=== PATIENT | female | born 1985 | race Caucasian/White ===

== ENCOUNTER 2020-12-21 06:13 | Emergency (ER) | payer MEDICAID, SELFPAY ==
[2020-12-21 06:16] VITALS: BP 141/70; PULSE 74; RESP 16; TEMP 36.8; O2SAT 98; BMI 31.8
--- NOTE | 2020-12-21 06:31 | EDS_ITS ---
HPI History of Present Illness Chief Complaint: Dental Informant: patient Onset/Context/Timing Onset: Yesterday Current Severity: Severe Maximum Severity: Severe Narrative Narrative: Patient present secondary to dental pain and lower jaw swelling. She states has had intermittent problems with her left mandibular central incisor for some time. She is been to her dentist multiple times but no problem has been found. She started having increasing pain yesterday with a small amount of swelling. She woke this morning with swelling across her mandible. She is not currently in antibiotics. She tried ibuprofen and ice at [place] She is planning on driving back up there when she leaves the emergency room today to be seen by her dentist. [facility] Medical History Cervical cancer Home Medications hydrocodone-acetaminophen 1 tab PO Q6H PRN 3 Days #10 tab 12/21/20 [Rx Last Taken Unknown] penicillin V potassium 500 mg PO 4X/DAY #40 tab 12/21/20 [Rx Last Taken Unknown] Allergy/AdvReac Type Severity Reaction Status Date / Time mustard Allergy Hives Verified 12/21/20 06:19 Surgical History History of hysterectomy Social History Smoking Status: Current every day smoker tobacco type: cigarettes ROS ROS ED Constitutional Constitutional ED: Denies chills or fever(s) Eyes Eyes: Denies change in vision ENT ENT ED: Reports other Details: Dental pain ; Denies sore throat Cardiovascular Cardiovascular: Denies chest pain Respiratory/Chest Respiratory/Chest: Denies cough or dyspnea Gastrointestinal Gastrointestinal: Denies abdominal pain, diarrhea, nausea or vomiting Genitourinary Genitourinary ED: Denies dysuria Musculoskeletal Musculoskeletal: Denies back pain Integumentary Denies rash Neurologic Neurologic: Denies headache(s) or weakness Allergic/Immunologic Allergic/Immunologic ED: Denies urticaria EXAM Physical Exam Const Vital Signs: 12/21/20 06:16 Temperature 98.2 F Temperature Source Temporal Pulse Rate 74 Respiratory Rate 16 Blood Pressure 141/70 H Blood Pressure Mean 93 Pulse Ox 98 Oxygen Delivery Method Room Air Positive well nourished and well developed General Appearance ED: well developed HEENT Reports normocephalic and head/scalp atraumatic HEENT Narrative: Tenderness location along the mandibular left central incisor. No obvious decay noted. No gum edema. Facial edema noted over the anterior mandible. No evidence of Alec's angina. Posterior pharynx exam normal. Eyes PERRL and EOMs intact bilaterally Neck supple Chest Wall inspection of chest normal and palpation of chest normal Resp normal respiratory effort and clear to auscultation bilaterally Cardio regular rate and regular rhythm GI normal to inspection, nondistended, normoactive bowel sounds Palpation: soft Extremity normal to inspection Neuro oriented x3 and no sensory deficits noted Sensorium / Orientation: alert Motor Exam: strength 5/5 throughout Psych mental status grossly normal MDM MDM MDM Narrative Medical decision making narrative: Patient treated with Pen-Vee K and [place]. Prescriptions given for the same. Patient to follow-up with her dentist. Discharge Plan Triage Chief Complaint: Dental ED Provider: Sandee Casillas Dx/Rx/DC Orders Clinical Impression: Dental abscess Instructions: ED Dental Abscess Prescriptions: New penicillin V potassium 250 MG tablet 500 mg PO 4X/DAY Qty: 40 RF: 0 hydrocodone-acetaminophen 5-325 mg tablet 1 tab PO Q6H PRN (Reason: pain) 3 Days Qty: 10 RF: 0 Primary Care Provider: Care Physician,No Primary Disposition Disposition: Home, Self Care Discharge Date/Time: 12/21/20 06:57
[2020-12-21] MEDS: HYDROcodone Bitartrate/Apap 5/325 Tablet PO (06:41)
[2020-12-21] MEDS: Penicillin Vk 250 MG Tablet 500 MG PO (06:41)
[2020-12-21] MEDS: proMETHazine 25 MG Tablet PO (06:56)
== END 2020-12-21 06:57 | disposition home or self-care (01) ==
LOC: ED 06:45
PROVIDERS: Emergency Provider Emergency Medicine
DX: K04.7 Periapical abscess without sinus (principal); F17.210 Nicotine dependence, cigarettes, uncomplicated
CPT/HCPCS: 99283